=== PATIENT | female | born 1995 | race Caucasian/White ===

== ENCOUNTER 2019-05-24 16:58 | Observation (INO) ==
[2019-05-24 18:02] LABS: Bilirubin,Urine Negative (Negative); Blood,Urine Large (Negative); Clarity,Urine Cloudy (Clear); Color,Urine Yellow (Yellow); Glucose,Urine (UA) Normal (Normal); Ketones,Urine Negative (Negative); Leukocyte Esterase,Urine Trace (Negative); Nitrite,Urine Negative (Negative); Protein,Urine Trace mg/dL (Neg-Trace); Specific Gravity,Urine 1.015 (1.010-1.025); Urobilinogen,Urine Normal (Normal)
[2019-05-24 18:04] LABS: Bacteria,Urine Few per hpf (None-Few); Hyaline Casts,Urine None Seen per lpf (None-Few); Squamous Epithelial Cell,Urine Many per lpf (None-Few)
[2019-05-24 18:11] LABS: Amphetamine Screen,Urine Negative ng/mL (Cutoff=1000); Barbiturate Screen,Urine Negative ng/mL (Cutoff=200); Benzodiazepines Screen,Urine Negative ng/mL (Cutoff=200); Cannabinoid Screen,Urine Negative ng/mL (Cutoff = 50); Cocaine Screen,Urine Negative ng/mL (Cutoff= 300); Opiate Screen,Urine Negative ng/mL (Cutoff=300); Phencyclidine Screen,Urine Negative ng/mL (Cutoff=25)
[2019-05-24 18:17] LABS: RBC,Urine TNTC per hpf (0-3)
== END 2019-05-24 18:40 | disposition home or self-care (01) ==
LOC: 1NENULAB
PROVIDERS: ADMIT Advanced Practice Midwife; ATTEND Advanced Practice Midwife

== ENCOUNTER 2019-08-07 13:02 | Inpatient (IN) ==
[~2019-08-07 13:02] MED LIST: CeFAZolin Premix DUPLEX 2,000 MG/50 ML BAG IVPB ONE; Ringers Solution, Lactated 1,000 ML IVC ONE
[2019-08-07 13:26] LABS: Basophils % 0.2 %; Eosinophils % 0.2 %; Hematocrit 39.7 % (35.3-44.9); Hemoglobin 14.1 g/dL (11.5-15.4); Immature Granulocytes % 0.2 % (0-4); Lymphocytes # 1.7 K/mcL (0.6-4.6); Lymphocytes % 20.1 %; Mean Corpuscular HGB Conc 35.5 g/dL (31.6-35.5); Mean Corpuscular Hemoglobin 31.5 pg (28.0-33.3); Mean Corpuscular Volume 88.6 fL (83.0-100.0); Monocytes # 0.7 K/mcL (0.0-1.3); Platelet Count 210 K/mcL (140-400); Red Blood Count 4.48 M/mcL (3.82-4.97); Red Cell Distribution Width 12.6 % (11.5-14.5); Segmented Neutrophils % 71.3 %; White Blood Count 8.5 K/mcL (4.3-11.1)
[2019-08-07 13:30] LABS: Amphetamine Screen,Urine Negative ng/mL (Cutoff=1000); Barbiturate Screen,Urine Negative ng/mL (Cutoff=200); Benzodiazepines Screen,Urine Negative ng/mL (Cutoff=200); Cannabinoid Screen,Urine Negative ng/mL (Cutoff = 50); Cocaine Screen,Urine Negative ng/mL (Cutoff= 300); Opiate Screen,Urine Negative ng/mL (Cutoff=300); Phencyclidine Screen,Urine Negative ng/mL (Cutoff=25)
[2019-08-07] MEDS ORDERED: 0.9 % Sodium Chloride 1,000 ML ONE (14:34)
[2019-08-07] MEDS ORDERED: Terbutaline 1 MG/ML VIAL SQ ONE (14:45)
== END 2019-08-07 16:50 | disposition home or self-care (01) | DRG 833 ==
LOC: 1NENULAB
PROVIDERS: ADMIT Registered Nurse; ATTEND Registered Nurse

== ENCOUNTER 2019-08-16 06:28 | Inpatient (IN) ==
[2019-08-16] MEDS ORDERED: *HR* Nalbuphine 10 MG/ML AMPUL IVP PRN (06:36)
[2019-08-16] MEDS ORDERED: Ondansetron 4 MG/2 ML VIAL IVP PRN (06:36)
[2019-08-16] MEDS ORDERED: Famotidine 20 MG/2 ML VIAL IVP PRN (06:36)
[2019-08-16] MEDS ORDERED: Metoclopramide 10 MG/2 ML VIAL IVP PRN (06:36)
[2019-08-16] MEDS ORDERED: Naloxone 0.4 MG/ML INJ IVP PRN (06:36)
[2019-08-16 07:03] LABS: Basophils % 0.4 %; Eosinophils % 0.4 %; Hematocrit 40.8 % (35.3-44.9); Hemoglobin 14.1 g/dL (11.5-15.4); Immature Granulocytes % 0.4 % (0-4); Lymphocytes # 1.9 K/mcL (0.6-4.6); Lymphocytes % 23.2 %; Mean Corpuscular HGB Conc 34.6 g/dL (31.6-35.5); Mean Corpuscular Hemoglobin 31.5 pg (28.0-33.3); Mean Corpuscular Volume 91.1 fL (83.0-100.0); Monocytes # 0.5 K/mcL (0.0-1.3); Monocytes % 6.2 %; Neutrophils # 5.8 K/mcL (1.6-8.9); Platelet Count 200 K/mcL (140-400); Red Blood Count 4.48 M/mcL (3.82-4.97); Red Cell Distribution Width 12.9 % (11.5-14.5); Segmented Neutrophils % 69.4 %; White Blood Count 8.4 K/mcL (4.3-11.1)
[2019-08-16 07:25] LABS: Amphetamine Screen,Urine Negative ng/mL (Cutoff=1000); Barbiturate Screen,Urine Negative ng/mL (Cutoff=200); Benzodiazepines Screen,Urine Negative ng/mL (Cutoff=200); Cannabinoid Screen,Urine Negative ng/mL (Cutoff = 50); Cocaine Screen,Urine Negative ng/mL (Cutoff= 300); Opiate Screen,Urine Negative ng/mL (Cutoff=300); Phencyclidine Screen,Urine Negative ng/mL (Cutoff=25)
[2019-08-16] MEDS: Oxytocin 20 units/ LR 1000 mL 20 UNIT/1,000 ML BAG IVC SCH ×2 (07:53→15:28)
[2019-08-16] MEDS: Ringers Solution, Lactated 1,000 ML IVC SCH ×2 (07:54→12:03)
[2019-08-16] MEDS ORDERED: Bupivacaine/EPI 1:200k 0.25%PF 10 ML VIAL INFILT ONE (11:50)
[2019-08-16] MEDS ORDERED: *HR* FentaNYL (PF) 100 MCG/2 ML VIAL ONE (11:50)
[2019-08-16] MEDS ORDERED: Epidural Premix (fent/bupiv) 110 ML EP ONE (11:52)
[2019-08-16] MEDS ORDERED: Epidural Premix (fent/bupiv) 110 ML EP SCH (12:00)
[2019-08-16] MEDS ORDERED: *HR* Ropivacaine/PF 0.5% 20 ML VIAL ONE (13:10)
[2019-08-16] MEDS ORDERED: Benzocaine/Menthol 56 GM AEROSOL SPRAY TP PRN (17:09)
[2019-08-16] MEDS ORDERED: Lanolin 7 G OINT...G. TP PRN (17:09)
[2019-08-16] MEDS ORDERED: Oxytocin 20 units/ LR 1000 mL 20 UNIT/1,000 ML BAG IVC SCH (17:09)
[2019-08-16] MEDS ORDERED: Acetaminophen 325 MG TABLET PO PRN (17:09)
[2019-08-16] MEDS: Ibuprofen 600 MG TABLET PO PRN (19:32)
[2019-08-17 05:48] LABS: Basophils % 0.3 %; Eosinophils # 0.1 K/mcL (0.0-0.6); Eosinophils % 0.9 %; Hematocrit 35.5 % (35.3-44.9); Immature Granulocytes % 0.5 % (0-4); Lymphocytes # 2.4 K/mcL (0.6-4.6); Lymphocytes % 24.3 %; Mean Corpuscular HGB Conc 33.2 g/dL (31.6-35.5); Mean Corpuscular Hemoglobin 31.1 pg (28.0-33.3); Mean Corpuscular Volume 93.7 fL (83.0-100.0); Mean Platelet Volume 9.9 fL (9.4-12.4); Monocytes # 0.9 K/mcL (0.0-1.3); Monocytes % 9.3 %; Neutrophils # 6.5 K/mcL (1.6-8.9); Platelet Count 144 K/mcL (140-400); Red Blood Count 3.79 M/mcL (3.82-4.97); Red Cell Distribution Width 12.9 % (11.5-14.5); Segmented Neutrophils % 64.7 %
[2019-08-17 06:00] LABS: Hemoglobin 11.8 g/dL (11.5-15.4)
[2019-08-17 07:48] VITALS: BP 124/82
[2019-08-17] MEDS ORDERED: Prenatal Vit/FA 1 EACH TABLET PO SCH (09:00)
[2019-08-17] MEDS: Ibuprofen 600 MG TABLET PO PRN (09:45)
== END 2019-08-17 15:53 | disposition home or self-care (01) | DRG 807 ==
LOC: 1NENULAB → 1NENUOBS 16:54
PROVIDERS: ADMIT Advanced Practice Midwife; ATTEND Advanced Practice Midwife